=== PATIENT | male | born 1990 | race Caucasian/White ===

== ENCOUNTER 2024-10-30 13:31 | Emergency (ER) | payer OTHER, SELFPAY ==
[2024-10-30 13:34] VITALS: BP 137/82; PULSE 67; RESP 18; TEMP 36.9; O2SAT 100; BMI 30.7
--- NOTE | 2024-10-30 14:35 | ED.HEATRA ---
HPI - Head Injury <Amalia Conway PA-C - Last Filed: 10/30/24 20:18> General Chief complaint: Head Injury Stated complaint: Left and hit his head at work Time Seen by Provider: 10/30/24 14:33 Source: patient Mode of arrival: Ambulatory History of Present Illness HPI Narrative: Mr. Felix is a pleasant 33-year-old male with no reported past medical history who presents to the emergency department for head and neck pain after slip and fall 6 days ago. Patient reports he was working when he stepped out of his truck and slipped on ice falling backwards hitting his head and neck on the ground. Denies loss of consciousness. He has been having persistent posterior headaches and mild neck pain since then, pain is improving significantly but he continues to feel ?slow mentally? which gets worse when he is driving or works late. Denies any nausea or vomiting. He still has full range of motion of his neck but states it feels a little sore when he turns his head to the left. No vision changes. No lacerations or abrasions. Denies any other injuries to extremities or back. No medications prior to arrival. No blood thinner use. Related Data Allergies Allergy/AdvReac Type Severity Reaction Status Date / Time No Known Drug Allergies Allergy Verified 10/30/24 13:34 Review of Systems <Amalia Conway PA-C - Last Filed: 10/30/24 20:18> Review of Systems ROS Unobtainable: All systems reviewed & are unremarkable except as noted in HPI and below Patient History <Amalia Conway PA-C - Last Filed: 10/30/24 20:18> Social History Smoking Status: Never smoker Smoking Status: Never smoker Exam <Amalia Conway PA-C - Last Filed: 10/30/24 20:18> Narrative Exam Narrative: GENERAL: 33 year old patient appears stated age. Well-developed patient, in no acute distress. HEAD: Atraumatic. Normocephalic. Slight tenderness to palpation of occipital scalp with no obvious deformity. EYES: PERRL. Extraocular motions intact. No scleral icterus. No injection or drainage. ENT: Normal TMs bilaterally. Nose without bleeding, purulent drainage. Throat without erythema, tonsillar hypertrophy or exudate. Airway patent. NECK: Trachea midline. Cervical ROM intact. Some reported midline mild cervical tenderness when he turns his head all the way to the left, however no difficulty with range of motion. CARDIOVASCULAR: Regular rate and rhythm. RESPIRATORY: ?Nonlabored respirations. ?Speaking in clear, full sentences. ?Clear to auscultation. Breath sounds equal bilaterally. No wheezes, rales, or rhonchi. ? EXTREMITIES: No edema or joint tenderness. BACK: Nontender without deformity or crepitance. No flank tenderness. NEURO: AOx3. ?Clear speech. ?Moves all 4 extremities appropriately. Normal yoklyn-zhsh-moyrrf, heel-garcia, rapid alternating movements. 5/5 bilateral upper and lower extremity strength. No facial asymmetry. SKIN: No rash or erythema of visible areas Initial Vital Signs Initial Vital Signs: Vital Signs Temperature 98.4 F 10/30/24 13:34 Pulse Rate 67 10/30/24 13:34 Respiratory Rate 18 10/30/24 13:34 Blood Pressure 137/82 10/30/24 13:34 Pulse Oximetry 100 10/30/24 13:34 Oxygen Delivery Method Room Air 10/30/24 13:34 <Bello Ridley MD - Last Filed: 11/01/24 12:45> Initial Vital Signs Initial Vital Signs: Vital Signs Temperature 98.4 F 10/30/24 13:34 Pulse Rate 67 10/30/24 13:34 Respiratory Rate 18 10/30/24 13:34 Blood Pressure 137/82 10/30/24 13:34 Pulse Oximetry 100 10/30/24 13:34 Oxygen Delivery Method Room Air 10/30/24 13:34 Course <Amalia Conway PA-C - Last Filed: 10/30/24 20:18> Orders Ordered: Discontinued Medications Acetaminophen (Acetaminophen 325 Mg Tablet) 975 mg PO NOW ONE Stop: 10/30/24 14:52 Last Admin: 10/30/24 14:57 Dose: 975 mg Documented By: MARIA ISABEL Vital Signs Vital signs: Vital Signs - 8 hr 10/30/24 13:34 10/30/24 16:17 Temperature 98.4 F 97.7 F Pulse Rate 67 80 Respiratory Rate 18 20 Blood Pressure 137/82 126/76 Pulse Oximetry 100 99 Oxygen Delivery Method Room Air Room Air <Bello Ridley MD - Last Filed: 11/01/24 12:45> Orders Ordered: Discontinued Medications Acetaminophen (Acetaminophen 325 Mg Tablet) 975 mg PO NOW ONE Stop: 10/30/24 14:52 Last Admin: 10/30/24 14:57 Dose: 975 mg Documented By: MARIA ISABEL Vital Signs Vital signs: Vital Signs - 8 hr 10/30/24 13:34 10/30/24 16:17 Temperature 98.4 F 97.7 F Pulse Rate 67 80 Respiratory Rate 18 20 Blood Pressure 137/82 126/76 Pulse Oximetry 100 99 Oxygen Delivery Method Room Air Room Air MDM - Head Injury <Amalia Conway PA-C - Last Filed: 10/30/24 20:18> Imaging Data CT scan - head: Radiologist's Impression: PROCEDURE: CT HEAD/BRAIN WO CON INDICATIONS: fall Fri; occiptal trauma; continuing pain TECHNIQUE: Noncontrast 4.5 mm thick angled axial sections acquired from the foramen magnum to the vertex, with coronal and sagittal reformats. For radiation dose reduction, the following was used: automated exposure control, adjustment of mA and/or kV according to patient size. COMPARISON: None. FINDINGS: Image quality: Diagnostic. CSF spaces: Basal cisterns are patent. No extra-axial fluid collections. Ventricles are normal in size and shape. Brain: No midline shift. No intracranial masses or hemorrhage. Mina-white matter interface is normal. Skull and face: Calvarium and visualized facial bones are intact, without suspicious lesions. Sinuses: Partial opacification of the ethmoid air cells. The mastoids are clear. IMPRESSION: No acute intracranial pathology. CT - cervical spine: Radiologist's Impression: PROCEDURE: CT CERVICAL SPINE WO CON INDICATIONS: fall fri posterior head trauma TECHNIQUE: Noncontrast 3 mm thick sections acquired from the skull base to the T4 level. Sagittal and coronal reformats were then constructed. For radiation dose reduction, the following was used: automated exposure control, adjustment of mA and/or kV according to patient size. COMPARISON: None. FINDINGS: Image quality: Excellent. Bones: No fractures or dislocations. Visualized superior ribs are intact. Soft tissues: Prevertebral soft tissues are normal in thickness. No paravertebral hematomas. No apical pneumothoraces. IMPRESSION: No displaced fracture or traumatic subluxation. [facility] Narrative Medical decision making narrative: 33-year-old male with no reported past medical history who presents to the emergency department for head and neck pain after slip and fall 6 days ago. Differential diagnosis includes but is not limited to closed head injury, concussion, cervical strain, intracranial injury, etc. On exam patient is in no acute distress, nontoxic-appearing, all vital signs within normal limits, normal neurologic examination, no signs of basilar skull fracture. Patient has been having some persistent pain after fall and mental slowness exacerbated by driving and working long hours. After shared decision-making with the patient we will proceed with a CT head and CT cervical spine, treat pain with acetaminophen. CT scan head and cervical spine negative for acute abnormality. Symptoms are consistent with concussion and cervical strain. Discussed the importance of decreased mental stimulation, rest, ibuprofen/Tylenol for pain. Advised he not return to work until symptoms are improved or resolved or otherwise cleared by PCP. Patient verbalized understanding of all information is agreeable to this plan. Strict ED return precautions discussed. He is stable for discharge home. Discharge Plan Departure Patient Disposition: Home Clinical Impression: Fall from slipping on ice Qualifiers: Encounter type: initial encounter Qualified Code(s): W00.9XXA - Unspecified fall due to ice and snow, initial encounter Concussion Qualifiers: Encounter type: initial encounter Loss of consciousness presence/duration: without LOC Qualified Code(s): S06.0X0A - Concussion without loss of consciousness, initial encounter Cervical strain Qualifiers: Encounter type: initial encounter Qualified Code(s): S16.1XXA - Strain of muscle, fascia and tendon at neck level, initial encounter Instructions: DI for Closed Head Injury Activity Restrictions/Additional Instructions: Thank you for coming to the emergency department. Today you were evaluated for head and neck pain after he slipped and fell on ice last Monday. CT scan was obtained of your neck and head which shows no acute abnormalities. You have a concussion and will likely have a mild headache and some nausea and brain fog for a few days. Avoiding highly stimulating activities and even TV or computers may be helpful in minimizing your symptoms. Avoid activities that will put you at risk for another head injury for at least a week. You can take tylenol or motrin for headache. Return for worsening or persistent symptoms Please take Ibuprofen (Motrin/Advil) or Acetaminophen (Tylenol) for pain. These are available over the counter. You may take Ibuprofen 600 mg every 8 hours with food for pain. You may also take Acetaminophen 650 mg every 4-6 hours for pain. Do not exceed 3000 mg of Tylenol a day as this can cause liver damage. Do not drink alcohol with either of these medications. Please follow up with your primary care doctor within the next 2-3 days for ER follow-up. (If you do not have a PCP you can call [phone]. ?to schedule an appointment with an [facility] Primary Care Provider) IF YOU DEVELOP ANY NEW OR WORSENING SYMPTOMS, RETURN TO THE ER! Please read the attached instructions, they highlight more specific treatments and interventions for you at home. Thank you for letting me participate in your care, Amalia Conway PA-C Stand Alone Forms: Patient Portal/API/Survey, Work Release Note ED Sign-out <Bello Ridley MD - Last Filed: 11/01/24 12:45> Cosign ED Attending Costaeature Attestation: I was immediately available in the department for consultation. ?This documentation has been reviewed and I agree with assessment and plan. Supervised by Bello Ridley MD
--- NOTE | 2024-10-30 14:49 | DI.CT.S_ITS ---
PROCEDURE: CT CERVICAL SPINE WO CON INDICATIONS: fall fri posterior head trauma TECHNIQUE: Noncontrast 3 mm thick sections acquired from the skull base to the T4 level. Sagittal and coronal reformats were then constructed. For radiation dose reduction, the following was used: automated exposure control, adjustment of mA and/or kV according to patient size. COMPARISON: None. FINDINGS: Image quality: Excellent. Bones: No fractures or dislocations. Visualized superior ribs are intact. Soft tissues: Prevertebral soft tissues are normal in thickness. No paravertebral hematomas. No apical pneumothoraces. IMPRESSION: No displaced fracture or traumatic subluxation. Dictated by: Adal Huerta M.D. on 10/30/2024 at 15:21 Approved by: Adal Huerta M.D. on 10/30/2024 at 15:22
--- NOTE | 2024-10-30 14:49 | DI.CT.S_ITS ---
PROCEDURE: CT HEAD/BRAIN WO CON INDICATIONS: fall Fri; occiptal trauma; continuing pain TECHNIQUE: Noncontrast 4.5 mm thick angled axial sections acquired from the foramen magnum to the vertex, with coronal and sagittal reformats. For radiation dose reduction, the following was used: automated exposure control, adjustment of mA and/or kV according to patient size. COMPARISON: None. FINDINGS: Image quality: Diagnostic. CSF spaces: Basal cisterns are patent. No extra-axial fluid collections. Ventricles are normal in size and shape. Brain: No midline shift. No intracranial masses or hemorrhage. Mina-white matter interface is normal. Skull and face: Calvarium and visualized facial bones are intact, without suspicious lesions. Sinuses: Partial opacification of the ethmoid air cells. The mastoids are clear. IMPRESSION: No acute intracranial pathology. Dictated by: Adal Huerta M.D. on 10/30/2024 at 15:20 Approved by: Adal Huerta M.D. on 10/30/2024 at 15:21
[2024-10-30] MEDS: ACETAMINOPHEN 325 MG TABLET 975 MG PO (14:57)
[2024-10-30 16:17] VITALS: BP 126/76; PULSE 80; RESP 20; TEMP 36.5; O2SAT 99
== END 2024-10-30 16:17 | disposition home or self-care (01) ==
PROVIDERS: Emergency Provider Physician Assistant
DX: S06.0X0A Concussion without loss of consciousness, initial encounter (principal); S16.1XXA Strain of muscle, fascia and tendon at neck level, initial encounter; W01.198A Fall on same level from slipping, tripping and stumbling with subsequent striking against other object, initial encounter; Y93.29 Activity, other involving ice and snow
CPT/HCPCS: 70450; 72125; 99284

== ENCOUNTER 2024-11-04 13:30 | Emergency (ER) | payer OTHER, SELFPAY ==
[2024-11-04 13:39] VITALS: BP 138/71; PULSE 80; RESP 17; TEMP 36.1; O2SAT 100; BMI 30.4
--- NOTE | 2024-11-04 16:37 | ED.RECABL ---
HPI - Recheck/Abnormal Lab/Rx <Annmarie Ellis PA-C - Last Filed: 11/04/24 16:56> General Chief Complaint: Recheck/Abnormal Lab/Rx Stated Complaint: Concussion Time Seen by Provider: 11/04/24 16:08 Source: patient Mode of arrival: Ambulatory History of Present Illness HPI narrative: 33-year-old male returns to the ED with lingering postconcussion syndrome symptoms. Patient initially had a fall with a head strike about 10 days ago, was seen in the ED on 10/30/2024 and diagnosed with a concussion. CT head was negative. Patient states he continues to have a headache, trouble concentrating. Patient states that he almost fainted in the shower about 3 days ago. Patient went back to work today, was unable to focus. 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 Patient denies vomiting. No vision changes. Patient is sensitive to light. Related Data Allergies Allergy/AdvReac Type Severity Reaction Status Date / Time No Known Drug Allergies Allergy Verified 11/04/24 13:39 Review of Systems <Annmarie Ellis PA-C - Last Filed: 11/04/24 16:56> Constitutional Constitutional: Denies chills, Denies fatigue, Denies fever(s), Denies frequent falls, Reports headache(s), Denies lethargy and Denies weakness Eyes Eyes: Denies change in vision, Denies eye discharge, Denies irritation, Denies loss of vision and Reports photophobia ENT Ears, Nose, Mouth, and Throat: Denies change in voice, Denies dizziness, Reports headache(s), Denies neck pain, Denies sore throat and Denies throat swelling Cardiovascular Cardiovascular: Denies chest pain, Denies irregular heart rhythm, Denies lightheadedness, Denies palpitations, Denies dyspnea, Denies dyspnea on exertion and Denies orthopnea Respiratory Respiratory: Denies cough, Denies dyspnea, Denies dyspnea on exertion and Denies wheezing Gastrointestinal Gastrointestinal: Denies abdominal pain, Denies change in bowel habits, Denies diarrhea, Denies nausea and Denies vomiting Musculoskeletal Musculoskeletal: Denies neck pain and Denies numbness Integumentary/Breasts Skin/Breast: Denies pruritus, Denies erythema, Denies rash and Denies wounds Neurologic Neurologic: Denies behavioral changes, Denies confusion, Denies dizziness, Denies frequent falls, Reports headache(s), Denies loss of vision, Denies numbness and Denies weakness Psychiatric Psychiatric: Denies anxiety, Denies behavioral changes, Denies confusion, Denies depression, Reports difficulty concentrating, Denies homicidal ideation and Denies suicidal ideation Endocrine Endocrine: Denies fatigue, Denies flushing and Denies palpitations Hematologic/Lymphatic Hematologic/Lymphatic: Denies easy bruising Allergic/Immunologic Allergic/Immunologic: Denies urticaria, Denies throat swelling and Denies wheezing Patient History <Annmarie Ellis PA-C - Last Filed: 11/04/24 16:56> Social History Smoking Status: Never smoker Smoking Status: Never smoker Exam <Annmarie Ellis PA-C - Last Filed: 11/04/24 16:56> Narrative Exam Narrative: Const General:?cooperative, healthy appearing and comfortable HENMT Head:?normal to inspection Ears:?hearing grossly normal bilaterally Nose:?external nose normal Face and sinus:?normal facial exam and sinuses nontender Mouth:?oral mucosae normal Throat:?posterior oropharynx normal Eyes General:?appearance normal, both eyes and all related structures Neck Neck:?normal visual inspection and no lymphadenopathy noted Resp Effort & Inspection:?normal respiratory effort Auscultation:?clear to auscultation bilaterally Cardio Rate:?regular rate Rhythm:?regular rhythm Neuro General:?patient alert, patient awake and patient oriented x3; PERRLA; CN 1 through 12 intact bilaterally; gait normal Initial Vital Signs Initial Vital Signs: Vital Signs Temperature 97.0 F L 11/04/24 13:39 Pulse Rate 80 11/04/24 13:39 Respiratory Rate 17 11/04/24 13:39 Blood Pressure 138/71 11/04/24 13:39 Pulse Oximetry 100 11/04/24 13:39 Oxygen Delivery Method Room Air 11/04/24 13:39 <Karmen Joel DO - Last Filed: 11/06/24 09:01> Initial Vital Signs Initial Vital Signs: Vital Signs Temperature 97.0 F L 11/04/24 13:39 Pulse Rate 80 11/04/24 13:39 Respiratory Rate 17 11/04/24 13:39 Blood Pressure 138/71 11/04/24 13:39 Pulse Oximetry 100 11/04/24 13:39 Oxygen Delivery Method Room Air 11/04/24 13:39 Course <Annmarie Ellis PA-C - Last Filed: 11/04/24 16:56> Vital Signs Vital signs: Vital Signs - 8 hr 11/04/24 13:39 Temperature 97.0 F L Pulse Rate 80 Respiratory Rate 17 Blood Pressure 138/71 Pulse Oximetry 100 Oxygen Delivery Method Room Air <Karmen Joel DO - Last Filed: 11/06/24 09:01> Vital Signs Vital signs: Vital Signs - 8 hr 11/04/24 13:39 Temperature 97.0 F L Pulse Rate 80 Respiratory Rate 17 Blood Pressure 138/71 Pulse Oximetry 100 Oxygen Delivery Method Room Air MDM - Recheck/Abnormal Lab/Rx <Annmarie Ellis PA-C - Last Filed: 11/04/24 16:56> MDM Narrative Medical decision making narrative: 33-year-old male returns to the ED with lingering postconcussion syndrome symptoms. Patient's symptoms are consistent with postconcussion syndrome. Physical exam is reassuring, patient is neurologically intact. Recommend continued physical and cognitive rest. Recommend follow-up with PCP and [facility] and [facility] providers to monitor progress. Recommend Tylenol, ibuprofen for headache. ED return precautions discussed with patient. Patient verbalized understanding. Medical records reviewed: Yes Discharge Plan Departure Patient Disposition: Home Clinical Impression: Post-concussion syndrome Instructions: DI for Postconcussion Syndrome Activity Restrictions/Additional Instructions: You were evaluated in the ED today for a headache, trouble concentrating after a recent head injury. Your symptoms are consistent with postconcussion syndrome which can last for a few days, weeks after the injury. Physical and cognitive rest will help you recover well. You may take Tylenol, ibuprofen for the headache. It is recommended that you avoid screens, reading. You may have to take time off work if your work involves screens, significant physical activity. Please follow-up with your PCP as soon as possible. Return to the ED if you have worsening symptoms. Stand Alone Forms: Patient Portal/API/Survey, Work Release Note ED Sign-out <Karmen Joel DO - Last Filed: 11/06/24 09:01> Cosign ED Attending Costaeature Attestation: I was immediately available in the department for consultation.
[2024-11-04 16:50] VITALS: BP 136/70; PULSE 82; RESP 18; TEMP 36.6; O2SAT 98
== END 2024-11-04 17:00 | disposition home or self-care (01) ==
PROVIDERS: Emergency Provider Student in an Organized Health Care Education/Training Program
DX: F07.81 Postconcussional syndrome (principal)
CPT/HCPCS: 99281